=== PATIENT | male | born 1985 | race Caucasian/White ===

== ENCOUNTER 2020-07-01 08:30 | Outpatient (REF) | payer OTHER, SELFPAY | END 2020-07-01 08:31 | disposition home or self-care (01) | LOC: HO.LAB 08:30 | PROVIDERS: Visit Provider Nurse Practitioner Family | DX: R50.9 Fever, unspecified (principal) | CPT/HCPCS: U0003 ==

== ENCOUNTER 2025-03-07 15:21 | Outpatient (AMB) | payer OTHER, SELFPAY ==
--- NOTE | 2025-03-07 15:23 | A.OFFVIS_ITS ---
Vital Signs 03/07/25 15:24 Height 5 ft 11 in Weight 314 lb 9.594 oz BMI 43.9 BP 136/98 H Blood Pressure Location Rt brachial Position Sitting Pulse 93 Pulse Source Pulse Oximeter Pulse Oximetry (%) 98 Oxygen Delivery Method Room Air Intake Visit Reasons: Hypogonadism Intake Note: New patient externally referred by PCP for Hypogonadism. 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 First diagnosed with Hypogonadism recently with labs revealing below . Was not started on Testosterone supplementation Currently not achieving spontaneous am erections, and unable to achieve erection when desired. Not Reports low libido. Decreased facial hair and shaving frequency. Denies any change in size or shape of testicles. Denies penile discharge or scrotal tenderness. Denies any history of mumps orchitis. Denies any head trauma. Has history of MICHELLE not on CPAP . Does snore at night with 2 children who were conceived spontaneously. Sense of smell intact. Denies headache or visual changes, gynecomastia or galactorrhea. Denies orthostatic symptoms, weight loss. Denies change in size of hands or feet. Denies hair loss, weight gain, cold intolerance. History of DVT or PE: No No use of anabolic Uses marijuana medically socially Labs: Found to have to low total testosterone levels in the mid 100s and a slightly elevated prolactin level. MRI showed a questionable 2 mm adenoma which was not seen on follow up MRI PSA CBC The patient is a 39-year-old male presenting with low testosterone levels. He reports erectile dysfunction, characterized by a lack of spontaneous erections and difficulty achieving an erection despite medication. There are no changes in testicular size or shape, and he denies scrotal tenderness or penile discharge. The patient has been diagnosed with sleep apnea and is in the process of obtaining a CPAP machine. He denies any history of mumps, head trauma, or changes in shaving frequency. He uses medical marijuana daily for insomnia and social anxiety, which may impact testosterone levels. Laboratory tests showed low testosterone levels, with values of 150 and 130, below the normal range of 300. LH and FSH levels were normal, and prolactin was slightly elevated. An MRI initially indicated a questionable 2-mm adenoma in the pituitary gland, but this was not confirmed on a subsequent MRI. COUNT INCLUDES THE [facility] Medical History (Updated 03/07/25 @ 15:25 by Zak Pascal MD) Hypogonadism, testicular Surgical History No pertinent past surgical history Family History Mother Diabetes High blood pressure Father High blood pressure Brother Throat cancer Social History Alcohol intake: current Alcohol intake frequency: holidays/special occasions only Patient Tobacco Use Status: Former Tobacco user Physical Exam Vital Signs: Last Vital Signs Pulse 93 03/07/25 15:24 BP 136/98 H 03/07/25 15:24 Pulse Ox 98 03/07/25 15:24 Oxygen Delivery Method Room Air 03/07/25 15:24 BMI result Body Mass Index 43.9 There is the absence of eunichoidal proportions. Neck exam reveals nl thyroid about 15 gms. Chest exam reveals absence of gynecomastia. Lungs CTA. Heart is S1 S2 Reg R/R. -M/R/G. Abdominal exam is benign. Muscle strength is 5/5 proximally. Examination of genitalia reveals nl size pthalus . Testes are of nl size and consistency. There is Hudson Stage V Hair development Assessment & Plan Assessment & Plan (1) Hypogonadism, testicular: Code(s): E29.1 - Testicular hypofunction Category: Medical Plan: This 39-year-old white male found to have low testosterone levels with inappropriately normal gonadotropin levels and slightly elevated prolactin level? Idiopathic hyperprolactinemia vs microadenoma Plan is to recheck a fasting prolactin, free testosterone by dialysis and testosterone level. Based on the above may consider treating with testosterone or dopamine agonist. We will check a ferritin level as well as baseline hemoglobin and hematocrit 1. Hypogonadism The patient has low testosterone levels. The plan includes abstaining from marijuana for 4-6 weeks and re-evaluating testosterone and prolactin levels. If testosterone remains low, consider replacement therapy options. 2. Hyperprolactinemia Slightly elevated prolactin levels require re-evaluation. If levels remain high, consider treatment with cabergoline. 3. Sleep Apnea The patient is obtaining a CPAP machine. Managing sleep apnea is essential before starting testosterone therapy to avoid complications. I discussed with the patient the implications of low testosterone levels and the potential impact of marijuana use on these levels. We reviewed the importance of managing sleep apnea before initiating testosterone therapy to prevent complications such as increased blood count and stroke risk. I explained the various testosterone replacement options, including gels, injections, and pills, and the considerations regarding insurance coverage and lifestyle. We also discussed the need to re-evaluate prolactin levels and the potential use of cabergoline if levels remain elevated. - Stop using marijuana for 4-6 weeks and recheck testosterone and prolactin levels in the morning while fasting. - Obtain and use a CPAP machine for sleep apnea management. - Follow up in three months for reassessment and further management. The patient had an opportunity to ask questions regarding treatment plan. The patient expressed understanding and agreement with the above treatment plan. Patient was informed and verbally consented to the use of an ambient scribe for clinic note documentation during this visit. Orders: Orders Hematocrit Today E29.1 - Testicular hypofunction Ferritin Today E29.1 - Testicular hypofunction Testosterone, Free/Total Today E29.1 - Testicular hypofunction Prolactin Today E29.1 - Testicular hypofunction Hemoglobin Today E29.1 - Testicular hypofunction Coding Level of Care Code New Pt Level 4 ([id number]) Diagnoses Hypogonadism, testicular E29.1
[2025-03-07 15:24] VITALS: BP 136/98; PULSE 93; O2SAT 98; BMI 43.9
== END 2025-03-07 16:03 | disposition home or self-care (01) ==
LOC: HO.ENCR 15:22
PROVIDERS: PCP Internal Medicine; Visit Provider Internal Medicine Endocrinology, Diabetes & Metabolism
DX: E29.1 Testicular hypofunction (principal)
CPT/HCPCS: 99204